=== PATIENT | female | born 1940 ===

== ENCOUNTER → 2023-06-17 12:45 | Outpatient (BNVA) | payer MEDICARE, OTHER, SELFPAY | PROVIDERS: Visit Provider Psychiatry & Neurology Neurology | DX: R41.3 Other amnesia (principal); G80.9 Cerebral palsy, unspecified; G40.209 Localization-related (focal) (partial) symptomatic epilepsy and epileptic syndromes with complex partial seizures, not intractable, without status epilepticus | CPT/HCPCS: 99205 ==

== ENCOUNTER → 2024-01-13 11:07 | Outpatient (BNVA) | payer MEDICARE, OTHER, SELFPAY | PROVIDERS: Visit Provider Psychiatry & Neurology Neurology | DX: R41.3 Other amnesia (principal); G80.9 Cerebral palsy, unspecified; G40.209 Localization-related (focal) (partial) symptomatic epilepsy and epileptic syndromes with complex partial seizures, not intractable, without status epilepticus | CPT/HCPCS: 99215 ==

== ENCOUNTER → 2024-09-21 11:30 | Outpatient (BNVA) | payer MEDICARE, OTHER, SELFPAY | PROVIDERS: Visit Provider Psychiatry & Neurology Neurology | DX: R41.3 Other amnesia (principal); G80.9 Cerebral palsy, unspecified; G40.209 Localization-related (focal) (partial) symptomatic epilepsy and epileptic syndromes with complex partial seizures, not intractable, without status epilepticus | CPT/HCPCS: 99214 ==